=== PATIENT | female | born 1985 | race Hispanic/Latino ===

== ENCOUNTER 2022-05-20 22:32 | Emergency (ER) | payer SELFPAY ==
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
[2022-05-21] MEDS ORDERED: KETOROLAC 30 MG/ML INJ ONE (00:59)
[2022-05-21 01:25] VITALS: TEMP 97.5
[2022-05-21 01:27] VITALS: O2SAT 99
[2022-05-21 01:28] VITALS: BP 112/75
--- NOTE | 2022-05-21 23:03 | RAD REPORT ---
EXAM DESCRIPTION: CT Cervical Spine Without Intravenous Contrast CLINICAL HISTORY: The patient is 36 years old and is Female; NECK PAIN TECHNIQUE: Axial computed tomography images of the cervical spine without intravenous contrast. Sa gittal and coronal reformatted images were created and reviewed. This CT exam was performed using o ne or more of the following dose reduction techniques: automated exposure control, adjustment of th e mA and/or kV according to patient size, and/or use of iterative reconstruction technique. COMPARISON: No relevant prior studies available. FINDINGS: Vertebrae: Reversal of the normal cervical lordosis. No acute fracture. Discs/spinal canal/neural foramina: No acute findings. No spinal canal stenosis. Soft tissues: Unremarkable. IMPRESSION: No acute fracture or subluxation. Electronically signed by: Neeraj Ritter MD 05/21/2022 12:49 AM CDT Due to temporary technical issues with the PACS/Fluency reporting system, reports are being signed by the in house radiologists without review as a courtesy to insure prompt reporting. The interpreting radiologist is fully responsible for the content of the report.
== END 2022-05-21 01:21 | disposition home or self-care (01) ==
LOC: ER 22:32
DX: S16.1XXA Strain of muscle, fascia and tendon at neck level, initial encounter (principal)
CPT/HCPCS: 72125; 96372; 99283

== ENCOUNTER 2023-01-09 13:58 | Emergency (ER) | payer SELFPAY ==
--- OUTSIDE RECORDS SUMMARY | 2023-01-09 14:01 | XMS REPORT | Continuity of Care Document ---
:1985 Author Organization [facility] t Address [address] [place] [address] [place] [id number] Care Team Providers Name Role Phone Unavailable Unavailable Unavailable Problems This patient has no known problems. Allergies, Adverse Reactions, Alerts This patient has no known allergies or adverse reactions. Medications This patient has no known medications. Procedures This patient has no known procedures. Encounters Start End Encounter Admission Attending Care Care Encounter Source Date/Time Date/Time Type Type Clinicians Facility Department ID 2022-06-11 2022-06-11 Outpatient [facility] [id number] Wilfrido 08:44:02 08:44:02 0414 F George Results Test Description Test Time Test Comments Results Result Comments Source PAP TEST, THINPREP, IMAGED 2022-06-15 14:06:06 Test Item Value Reference Range Interpretation Comme nts SOURCE: (test code = Cervical 8001) SLIDES: (test code = 2 8011) LMP: (test code = 8021) 05/21/2022 SPECIMEN ADEQUACY: (test (NOTE) Sa tisfactory for evaluation. code = 53540) Endocervical c ells/transformation zone component not identified. INTERPRETATION: (test NILM/NO EPITH. ---- code = 80354) ABNORMALITY;SEE BELOW ----- ---- NEGATI VE FOR INTRAEPITHELIAL LESION OR MALIGNANCY (NIL M) ------- OTHER COMMENTS: (test (NOTE) The ab sence of endocervical cells code = 8081) is confirmed by a seniorcytotechn ologist.Due to technical or sp ecimen issues, imaging could n ot beperformed. A cytotechnologis t has manually screened this s lide.Interpreted using an altern ate method of processing. Thi s testwas developed and i ts performance characteristics determined by[facility] [place]. It has not been cleared or approved by the FDA. The oliverio ralph is regulated under CLIA asqu alified to perform high-complexity testing. This test is usedfor clinical purposes. It sh ould not be regarded asinve stigational or for research. DEPUTY SHERIFF K9 HANDLER: (test Judit Carrasco CT (ASCP) code = 8101) QC TECHNOLOGIST: (test Christiane Segura [facility](ASCP) code = 8111) [facility] LOCATION: (test code = (NOTE) Speci mens processed and [address]1165) interpreted at [facility], [address] [place] [address], [place] [address], , CLIA: [id number] CPT: (test code = 8140) (NOTE) 8814 2 UNLESS OTHERWISE INDICATED, COMPUTER AIDED AND CYTOTECHNOLOGIS T SCREENING PERFORMED. The Pap test is a screening test with an inherent, but low probabi lity of error. Your patient sh ould be reminded to consult you immediately if she experiences any suspicious signs or symptoms, re gardless of her Pap test result . An alternate report format c ontaining images or consolidated prior Pap history is available as applicable. CT/NG, NAAT, [id number] 17:45:23 Test Item Value Reference Range Interpretation Comments CHLAMYDIA, NAAT, NEGATIVE NEGATIVE A negative result does THINPREP (test code not excl ude low level = 54409) infection, specimensamplin g error, or collection erro r. Testing is performed wi the [employer]ol[employer] Lalo 680 systems usingre al-time Polymerase Bart n Reaction (PCR) method. GONORRHEA, NAAT, NEGATIVE NEGATIVE A negative result does THINPREP (test code not excl ude low level = 17105) infection, specimensamplin g error, or collection erro r. Testing is performed the [employer] 680 systems usingre al-time Polymerase Bart n Reaction (PCR) method. HPV HIGH RISK WITH GENOTYPE, [id number] 11:13:34 Test Item Value Reference Range Interpretation Comments HPV HIGH RISK TEST NOT PERFORMED NEGATIVE QUANTIT Y OF SPECIMEN INTERP (test INSUFFICIENT FO R code = 33534) TESTING. CHARG ES DELETED. [facility] has important patho logy staff changes effective 04/28. New patholo gy staff will prov sia uninterrupted, excellent patie nt care and clinic al consultation. S ee URL: [email or web address] UNLE SS OTHERWISE INDIC ATED, ALL TESTING PER FORMED AT [facility], [facility] [address] [place] [address] [employer] DIRECTOR: Gerson LEE MARY NUMBER [id number] CAP ACCREDITATION N O. [id number] HIV 1/2 4TH GEN, RFLX [id number] 04:23:47 Test Item Value Reference Range Interpretation Comments HIV 1/2 4TH GEN, RFLX CONF (test NON-REACTIVE NON-REACTIVE code = 3514) HEPATITIS PANEL, [id number] 04:23:47 Test Item Value Reference Range Interpretation Comments HEPATITIS A IgM (test NON-REACTIVE NON-REACTIVE code = 48158) HEPATITIS B CORE IgM NON-REACTIVE NON-REACTIVE (test code = 4644) HEPATITIS B SURF AG NON-REACTIVE NON-REACTIVE (test code = 2739) HEPATITIS C ANTIBODY NON-REACTIVE NON-REACTIVE (test code = 4675) INTERPRETATION (NOTE) Hepatitis A HEPATITIS A: (test code sero logy shows no = 2552) evidence of acu te hepatitis A. INTERPRETATION (NOTE) Hepatitis B HEPATITIS B: (test code sero logy shows no = 35495) evidence of acu te hepatitis B and no indication of exposure to hepatitis B vir us in the previous [place] eight months. INTERPRETATION (NOTE) Hepatitis C HEPATITIS C: (test code sero logy shows no = 61597) evidence of exposure to hepatitisC viru s at this time. I t can take up to 12 months after exposure tothe hepatitis C vir us for antibodies to become detectab le in the blood in certain patient s. VITAMIN D, 25 [id number] 04:03:57 Test Item Value Reference Range Interpretation Comments VITAMIN D, 25 29 NG/ML SEE BELOW L EFFECTIVE 03/08/2022, [place] (test code PLEASE NOTE NE W METHODOLOGY = 4958) IS ELECTROCH EMILUMINESCENCE BINDING ASSAY. NOTE: 25-HYDROXYVITAM IN D ASSAY INCLUDES 25-HYD ROXYVITAMIN D2 AND D3. I NTERPRETIVE RANGES PED IATRIC (<17 YEARS) . . . . . . . . . . . NG/ML 20-100ADU LT: INSUFFICIENT . . . . . . . . . . . . . . NG/ML <20 SUBOP TIMAL . . . . . . . . . . . . . . . NG/ML 20-29 OPTIMAL . . . . . . . . . . . . . . . . . NG/ML 30-100 [id number] 03:54:57 Test Item Value Reference Range Interpretation Comments PROLACTIN (test 22.8 NG/ML 5.0-37.0 NOTE: Metho dology is Adolfo code = 2800) Lalo Electrochemilum inescence Immunoassay (EC MARY). Values obtained with d ifferent assays/manufact urers cannot be used interch angeably. Results should not be used as sole basis to e stablish the presence or abs ence of malignancy. [facility] has important patho logy staff changes effecti ve 04/28/2022. New patholo gy staff will provide uninter rupted, excellent patie nt care and clinical consul tation. See URL: [email or web address] UNLESS OTHER ACE INDICATED, ALL TESTING PERFORMED AT [facility] Event [employer] [address] [place] [address] LABORATORY DIRE CTOR: BENNY WATSON M.D. [place] NUMBER [id number] CAP ACCREDITATION N O. [id number] TSH, THIRD [id number] 03:54:57 Test Item Value Reference Range Interpretation Comments TSH, THIRD GENERATION (test code 1.650 UIU/ML 0.400-4.100 = 2821) VITAMIN [id number] 03:54:57 Test Item Value Reference Range Interpretation Comments VITAMIN B-12 (test code = 2840) 358 PG/ML 200-950 FSH + LH [id number] 03:54:57 Test Item Value Reference Range Interpretation Comments FOLLICLE STIM HORMONE 2.5 IU/L SEE BELOW EXPECTED VALUES (test code = 2700) FOR FSH F OR FEMALES >17 YEARS F OLLICULAR 3.5-12.5 IU/L M ID-CYCLE PEAK 4.7-21.5 I U/L LUTEAL PHASE 1. 7-7.7 IU/L POSTMENOPA USAL 25.8-134.8 IU/L LUTEINIZING HORMONE 2.6 IU/L SEE BELOW EXPECTED VALUES (test code = 2776) FOR LH FO R FEMALES >17 YEARS MALES FEMALES >=18 YE ARS 1.8-8.6 IU/L FO LLICULAR 2.4-12.6 IU/L M ID-CYCLE PEAK 14.0-95.6 IU/L LUTEAL PHASE 1. 0-11.4 IU/L POSTMENOPA USAL 7.7-58.5 IU/L [id number] 03:44:24 Test Item Value Reference Range Interpretation Comments RPR RESULT (test code = NON-REACTIVE NON-REACTIVE 3501) RPR TITER (test code = 3500) NOT INDIC. TITER NOT INDIC.
[2023-01-09] MEDS ORDERED: DIPHENHYDRAMINE 50 MG/ML VIAL ONE (14:44)
[2023-01-09] MEDS ORDERED: dexAMETHasone 10 MG/ML VIAL ONE (14:45)
[2023-01-09] MEDS ORDERED: KETOROLAC 30 MG/ML INJ ONE (14:45)
[2023-01-09] MEDS ORDERED: METOCLOPRAMIDE 10 MG/2mL INJ ONE (14:45)
--- NOTE | 2023-01-09 16:02 | ER ---
Nurse's Notes [facility] Name: Kathryn Cabrera Age: 37 yrs Sex: Female : 1985 Arrival Date: 01/09/2023 Time: 13:58 Bed 19 Private MD: Diagnosis: Headache Presentation: 01/09 14:07 Chief complaint: Patient states: Congestion and frontal headache that has been ongoing ss x 1 month. Pt went to see a at [facility] and was given an antibiotic which has not helped. Coronavirus screen: Client denies travel out of the [place] in the last 14 days. Ebola Screen: Patient denies exposure to infectious person. Patient denies travel to an Ebola-affected area in the 21 days before illness onset. Initial Sepsis Screen: Does the patient meet any 2 criteria? No. Patient's initial sepsis screen is negative. Does the patient have a suspected source of infection? No. Patient's initial sepsis screen is negative. Risk Assessment: Do you want to hurt yourself or someone else? Patient reports no desire to harm self or others. Onset of symptoms was November 2022. 14:07 Method Of Arrival: Ambulatory ss 14:07 Acuity: MICHAEL 3 ss Triage Assessment: 16:06 Headache History: Denies prior headaches. tm6 Historical: - Allergies: 14:11 No Known Allergies; ss - Home Meds: 14:11 None [Active]; ss - PMHx: 14:09 None; ss - Immunization history:: Client reports receiving the 2nd dose of the Covid vaccine. - Social history:: Smoking status: Patient denies any tobacco usage or history of. Screenin:53 [facility] ED Fall Risk Assessment (Adult) History of falling in the last 3 months, tm6 including since admission No falls in past 3 months (0 pts). Abuse screen: Denies threats or abuse. Denies injuries from another. Nutritional screening: No deficits noted. Tuberculosis screening: No symptoms or risk factors identified. Assessment: 14:53 General: Appears uncomfortable, Behavior is calm, cooperative. Pain: Complains of pain tm6 in face Pain currently is 8 out of 10 on a pain scale. Quality of pain is described as aching. Neuro: Level of Consciousness is awake, alert, obeys commands, Oriented to person, place, time, situation, Reports headache in entire. Cardiovascular: Capillary refill < 3 seconds Patient's skin is warm and dry. Respiratory: Airway is patent Respiratory effort is even, unlabored, Respiratory pattern is regular, symmetrical. GI: Abdomen is round non-distended. : No signs and/or symptoms were reported regarding the genitourinary system. EENT: No signs and/or symptoms were reported regarding the EENT system. Derm: No signs and/or symptoms reported regarding the dermatologic system. Musculoskeletal: No signs and/or symptoms reported regarding the musculoskeletal system. 15:46 Reassessment: Patient appears in no apparent distress at this time. Patient is alert, tm6 oriented x 3, equal unlabored respirations, skin warm/dry/pink. Patient states feeling better. Patient states symptoms have improved. Vital Signs: 14:07 BP 132 / 91; Pulse 118; Resp 16; Temp 98.3(TE); Pulse Ox 100% on R/A; Weight 77.11 kg; ss Height 4 ft. 9 in. ; 14:53 BP 126 / 82; Pulse 98; Resp 17; Pulse Ox 98% ; tm6 14:53 Pain 8/10; tm6 15:45 BP 122 / 81; Pulse 87; Pulse Ox 98% on R/A; tm6 15:46 Pain 4/10; tm6 14:07 Body Mass Index 36.79 (77.11 kg, 144.78 cm) ss 14:53 Pain Scale: Adult tm6 15:46 Pain Scale: Adult tm6 ED Course: 14:01 Patient arrived in ED. im 14:05 Aidan Cunningham MD is Attending Physician. ec2 14:09 Triage completed. ss 14:09 Arm band placed on right wrist. ss 14:27 Dong Devine, MIHAI is Primary Nurse. tm6 14:53 Patient has correct armband on for positive identification. Placed in gown. Bed in low tm6 position. Call light in reach. Side rails up X2. Provided Education on: medications given. Client placed on continuous cardiac and pulse oximetry monitoring. NIBP monitoring applied. Door closed. Noise minimized. Lights dimmed. Warm blanket given. 14:53 No provider procedures requiring assistance completed. tm6 14:55 Inserted saline lock: 20 gauge in right antecubital area, using aseptic technique. ld1 16:06 IV discontinued, intact, bleeding controlled, No redness/swelling at site. tm6 Administered Medications: 14:52 Drug: NS 0.9% IV 1000 ml IV at 1 bolus Per protocol; 1000 mL bolus Route: IV; Rate: 1 tm6 bolus; Site: right antecubital; 14:52 Drug: metoCLOPramide IVP 10 mg IVP once; over 1 to 2 minutes Route: IVP; Site: right tm6 antecubital; 14:52 Drug: diphenhydrAMINE IVP 25 mg IVP once Route: IVP; Site: right antecubital; tm6 14:52 Drug: Ketorolac IVP 10 mg 10 mg IVP once Route: IVP; Site: right antecubital; tm6 14:52 Drug: Decadron - Dexamethasone IVP 10 mg IVP once Route: IVP; Site: right antecubital; tm6 Medication: 14:53 VIS not applicable for this client. tm6 Outcome: 16:01 Discharge ordered by . ec2 16:06 Discharged to home ambulatory, tm6 16:06 Condition: stable 16:06 Discharge instructions given to patient, Instructed on discharge instructions, follow up and referral plans. Demonstrated understanding of instructions, follow-up care, 16:07 Patient left the ED. tm6 Signatures: Kaleigh Ramos RN RN Regina Pascual RN RN ld1 Nicolasa Doll Edwin, MD MD ec2 Dong Devine RN RN tm6
--- NOTE | 2023-01-09 16:02 | EDPHYS ---
Physician Documentation [facility] Name: Kathryn Cabrera Age: 37 yrs Sex: Female : 1985 Arrival Date: 01/09/2023 Time: 13:58 Bed 19 Private MD: ED Physician Aidan Cunningham HPI: 01/09 14:21 This 37 yrs old Female presents to ER via Ambulatory with complaints of ec2 Headache, Worst Ever. 14:21 Patient arrives today for evaluation of a persistent headache. States that she been ec2 having symptoms for approximately 3 to 4 months, has been evaluated in the past and has had previous CT imaging that was nondiagnostic. Patient reports she has persistent pain, can take ibuprofen with some improvement in her symptoms. Patient reports some associated nausea. Denies any vomiting. Denies any head trauma.. Historical: - Allergies: 14:11 No Known Allergies; ss - Home Meds: 14:11 None [Active]; ss - PMHx: 14:09 None; ss - Immunization history:: Client reports receiving the 2nd dose of the Covid vaccine. - Social history:: Smoking status: Patient denies any tobacco usage or history of. ROS: 14:21 Constitutional: as per hpi ec2 Exam: 14:21 Constitutional: GEN: NAD Head: atraumatic Eyes: EOMI Ears: External ears are ec2 normal. CV: tachycardia, LUNGS: no respiratory distress ABD: non-distended SKIN: no evidence of rashes MSK: no evidence of trauma NEURO: moves all extremities equally, cranial nerves II through XII intact, strength intact all 4 extremities, normal gait, intact sensation throughout. Vital Signs: 14:07 BP 132 / 91; Pulse 118; Resp 16; Temp 98.3(TE); Pulse Ox 100% on R/A; Weight 77.11 kg; ss Height 4 ft. 9 in. ; 14:53 BP 126 / 82; Pulse 98; Resp 17; Pulse Ox 98% ; tm6 14:53 Pain 8/10; tm6 15:45 BP 122 / 81; Pulse 87; Pulse Ox 98% on R/A; tm6 15:46 Pain 4/10; tm6 14:07 Body Mass Index 36.79 (77.11 kg, 144.78 cm) ss 14:53 Pain Scale: Adult tm6 15:46 Pain Scale: Adult tm6 MDM: 14:05 Patient medically screened. ec2 14:21 ED course: Patient arrives today for evaluation of a persistent headache ongoing for ec2 greater than 4 months. Examination remarkable for nontoxic individual is otherwise in no acute distress he does have an intact neurologic exam and slight tachycardia noted. We will treat the patient symptoms and reassess the patient. Currently considering headache syndrome, low suspicion for intracranial brain bleed, low suspicion for mass. Accordingly will defer CT scan of the head.. 16:01 Data reviewed: vital signs. ED course: On reassessment patient with marked improvement ec2 in her symptoms. Will discharge home, suspect chronic headache syndrome versus possible viral process. Suspicion for intracranial process such as masses or bleeds, low suspicion for process such as meningitis or encephalitis. Return precautions given.. Administered Medications: 14:52 Drug: NS 0.9% IV 1000 ml IV at 1 bolus Per protocol; 1000 mL bolus Route: IV; Rate: 1 tm6 bolus; Site: right antecubital; 14:52 Drug: metoCLOPramide IVP 10 mg IVP once; over 1 to 2 minutes Route: IVP; Site: right tm6 antecubital; 14:52 Drug: diphenhydrAMINE IVP 25 mg IVP once Route: IVP; Site: right antecubital; tm6 14:52 Drug: Ketorolac IVP 10 mg 10 mg IVP once Route: IVP; Site: right antecubital; tm6 14:52 Drug: Decadron - Dexamethasone IVP 10 mg IVP once Route: IVP; Site: right antecubital; tm6 Disposition Summary: 01/09/23 16:01 Discharge Ordered Notes: Location: Home ec2 Condition: Stable ec2 Diagnosis - Headache ec2 Discharge Instructions: - Discharge Summary Sheet ec2 - General Headache Without Cause ec2 Forms: - Medication Reconciliation Form ec2 - Thank You Letter ec2 - Antibiotic Education ec2 - Prescription Opioid Use ec2 - Patient Portal Instructions ec2 - Leadership Thank You Letter ec2 Prescriptions: - Compazine 10 mg Oral Tablet - take 1 tablet ORAL route every 8 hours As needed; 20 tablet; Refills: 0, ec2 Product Selection Permitted Signatures: Kaleigh Ramos RN RN Aidan Cunningham MD MD ec2 Dong Devine RN RN tm6 Corrections: (The following items were deleted from the chart) 14:23 14:21 Constitutional: GEN: NAD Head: atraumatic Eyes: EOMI Ears: External ears are ec2 normal. CV: regular rate LUNGS: no respiratory distress ABD: non-distended SKIN: no evidence of rashes MSK: no evidence of trauma NEURO: moves all extremities equally, cranial nerves II through XII intact, strength intact all 4 extremities, normal gait, intact sensation throughout. ec2
[2023-01-09 16:10] VITALS: TEMP 98.3
[2023-01-09 16:12] VITALS: O2SAT 98
[2023-01-09 16:14] VITALS: BP 122/81
== END 2023-01-09 16:07 | disposition home or self-care (01) ==
LOC: ER 13:58
DX: R51.9 Headache, unspecified (principal)
CPT/HCPCS: 96374; 96375; 99284; J1100; J1200; J2765

== ENCOUNTER 2023-02-06 20:54 | Emergency (ER) | payer SELFPAY ==
--- OUTSIDE RECORDS SUMMARY | 2023-02-06 20:57 | XMS REPORT | Continuity of Care Document ---
Author Name Unknown Address [address] [facility] [address] [place] [address] [facility] thconnect Address [address] [facility] [place] [address] Care Team Providers Care Seed Pelleter Name Role Phone Unavailable Unavailable Unavailable Encounters Start Date/Time End Date/Time Encounter Type Admission Type Attending Clinicians Care Facility Care Department Encounter ID Source 2022-06-11 08:44:02 2022-06-11 08:44:02 Outpatient [facility] [id number] Wilfrido Vazquez Results Test Description Test Time Test Comments Results Result Co mments Source CT/NG, NAAT, [id number] 17:45:23* Test Item Value Reference Range Interpretation Comme nts CHLAMYDIA, NAAT, THINPREP (test code = 24367) NEGATIVE NEGATIVE A negative resul t does not exclude low level infection, specimensampling error, or collection error. Testing is performed with the [employer] Lalo 6800/8800 systems usingreal-time Polymerase Chain Reaction (PCR) method. GONORRHEA, NAAT, THINPREP (test code = 19961) NEGATIVE NEGATIVE A negative resul t does not exclude low level infection, specimensampling error, or collection error. Testing is performed with the [employer] 6800/8800 systems usingreal-time Polymerase Chain Reaction (PCR) method. HPV HIGH RISK WITH GENOTYPE, [id number] 11:13:34* Test Item Value Reference Range Interpretation Comme nts HPV HIGH RISK INTERP (test code = 53771) TEST NOT PERFORMED NEGATIVE QUANTITY OF S PECIMEN INSUFFICIENT FOR TESTING. CHARGES DELETED. [facility] has important pathology staff changes effective 04/28/2022. New pathology staff will provide uninterrupted, excellent patient care and clinical consultation. See URL: [email or web address]. UNLESS OTHERWISE INDICATED, ALL TESTING PERFORMED AT [facility] [address] [place] [id number] [employer] ENGINEER: BENNY MANZANO M.D. [place] NUMBER [id number] [facility] [place]. [id number] HIV 1/2 4TH GEN, RFLX [id number] 04:23:47* Test Item Value Reference Range Interpretation Comme nts HIV 1/2 4TH GEN, RFLX CONF ( test code = 3514) NON-REACTIVE NON-REACTIVE HEPATITIS PANEL, [id number] 04:23:47* Test Item Value Reference Range Interpretation Comme nts HEPATITIS A IgM (test code = 40265) NON-REACTIVE NON-REACTIVE HEPATITIS B CORE IgM (test code = 4644) NON-REACTIVE NON-REACTIVE HEPATITIS B SURF AG (test code = 2739) NON-REACTIVE NON-REACTIVE HEPATITIS C ANTIBODY (test code = 4675) NON-REACTIVE NON-REACTIVE INTERPRETATION HEPATITIS A: (test code = 2552) (NOTE) Hepatitis A serology shows no evidence of acute hepatitis A. INTERPRETATION HEPATITIS B: (test code = 45586) (NOTE) Hepatitis B serology shows no evidence of acute hepatitis B andno indication of exposure to hepatitis B virus in the previous [place] eight months. INTERPRETATION HEPATITIS C: (test code = 71250) (NOTE) Hepatitis C serology shows no evidence of exposure to hepatitisC virus at this time. It can take up to 12 months after exposure tothe hepatitis C virus for antibodies to become detectable in the blood in certain patients. VITAMIN D, 25 [id number] 04:03:57* Test Item Value Reference Range Interpretation Comme [facility] VITAMIN D, 25 OH (test code = 4958) 29 NG/ML SEE BELOW L EFFECTIVE 10/2022, PLEASE NOTE NEW METHODOLOGY IS ELECTROCHEMILUMINESCENCE BINDING ASSAY. NOTE: 25-HYDROXYVITAMIN D ASSAY INCLUDES 25-HYDROXYVITAMIN D2 AND D3. INTERPRETIVE RANGES PEDIATRIC (<17 YEARS) . . . . . . . . . . . NG/ML 20-100ADULT: INSUFFICIENT . . . . . . . . . . . . . . NG/ML <20 SUBOPTIMAL . . . . . . . . . . . . . . . NG/ML 20-29 OPTIMAL . . . . . . . . . . . . . . . . . NG/ML 30-100 [id number] 03:54:57* Test Item Value Reference Range Interpretation Comme [facility] PROLACTIN (test code = 2800) 22.8 NG/ML 5.0-37.0 NOTE: Methodolog y is [employer]alo Electrochemiluminescence Immunoassay (ECLIA). Values obtained with different assays/manufacturers cannot be used interchangeably. Results should not be used as sole basis to establish the presence or absence of malignancy. [facility] has important pathology staff changes effective 04/28/2022. New pathology staff will provide uninterrupted, excellent patient care and clinical consultation. See URL: [email or web address]. UNLESS OTHERWISE INDICATED, ALL TESTING PERFORMED AT [facility] [address] [place] [address] [employer] ENGINEER: BENNY MANZANO M.D. CLIA NUMBER [id number] [facility]. [id number] TSH, THIRD [id number] 03:54:57* Test Item Value Reference Range Interpretation Comme [facility] TSH, THIRD GENERATION (test code = 2821) 1.650 UIU/ML 0.400-4.100 VITAMIN [id number] 03:54:57* Test Item Value Reference Range Interpretation Comme [facility] VITAMIN B-12 (test code = 2840) 358 PG/ML 200-950 FSH + LH [id number] 03:54:57* Test Item Value Reference Range Interpretation Comme [facility] FOLLICLE STIM HORMONE (test code = 2700) 2.5 IU/L SEE BELOW EXPEC EDILIA VALUES FOR FSH FOR FEMALES >17 YEARS FOLLICULAR 3.5-12.5 IU/L MID-CYCLE PEAK 4.7-21.5 IU/L LUTEAL PHASE 1.7-7.7 IU/L POSTMENOPAUSAL 25.8-134.8 IU/L LUTEINIZING HORMONE (test code = 2776) 2.6 IU/L SEE BELOW EXPEC EDILIA VALUES FOR LH FOR FEMALES >17 YEARS MALES FEMALES >=18 YEARS 1.8-8.6 IU/L FOLLICULAR 2.4-12.6 IU/L MID-CYCLE PEAK 14.0-95.6 IU/L LUTEAL PHASE 1.0-11.4 IU/L POSTMENOPAUSAL 7.7-58.5 IU/L [id number] 03:44:24* Test Item Value Reference Range Interpretation Comme nts RPR RESULT (test code = 3501) NON-REACTIVE NON-REACTIVE RPR TITER (test code = 3500) NOT INDIC. TITER NOT INDIC.
[2023-02-06 21:59] LABS: Absolute Lymphocytes (CBC) 3.3 K/uL (0.7-4.9); Hematocrit 40.8 % (36.0-45.0); MCV 89.4 fL (80-100); MPV 9.4 fL (7.6-11.3); Platelets 320 thou/uL (152-406); RBC Red Blood Cell Count 4.57 M/uL (3.86-4.86)
--- NOTE | 2023-02-06 22:16 | RAD REPORT ---
EXAM DESCRIPTION: RAD - Chest Single View - 02/06/2023 10:11 pm CLINICAL HISTORY: CHEST PAIN Chest pain. COMPARISON: <Comparisons> FINDINGS: Portable technique limits examination quality. The lungs are grossly clear. The heart is normal in size. No displaced fractures. IMPRESSION: No acute intrathoracic process suspected.
[2023-02-06 22:26] LABS: ALT/SGPT 37 U/L (13-56); AST/SGOT 13 U/L (15-37); Albumin 3.9 g/dL (3.4-5.0); Alkaline Phosphatase 90 U/L (45-117); BUN Blood Urea Nitrogen 18 mg/dL (7-18); Bicarbonate 26 mEq/L (21-32); Bilirubin Total 0.2 mg/dL (0.2-1.0); Glomerular Filtration Rate 114 ml/min (=/>90); Glucose Level 103 mg/dL (74-106); Magnesium 2.4 mg/dL (1.6-2.4); Potassium 3.5 mEq/L (3.5-5.1); Protein, Total 7.9 g/dL (6.4-8.2); Sodium Level 138 mEq/L (136-145); Troponin High Sensitivity 3.3 pg/mL (<58.9)
[2023-02-06 22:27] LABS: Bilirubin Direct < 0.1 mg/dL (0-0.2); Bilirubin Indirect, Calculated ND mg/dL (0.2-0.8)
--- NOTE | 2023-02-06 22:31 | ER ---
Nurse's Notes [facility] Name: Kathryn Cabrera Age: 37 yrs Sex: Female : 1985 Arrival Date: 02/06/2023 Time: 20:54 Bed 18 Private MD: Diagnosis: Chest pain, unspecified Presentation: 02/06 21:03 Chief complaint: Patient states: Pt states she has been having a warm sensation to her ri1 chest and arms on/off since Tuesday after taking 2 excedrins. States she has been belching on/off ever since. Denies abdominal pain. Unsure if it could be anxiety. Coronavirus screen: Vaccine status: Patient reports receiving the 2nd dose of the covid vaccine. Ebola Screen: Patient denies travel to an Ebola-affected area in the 21 days before illness onset. Initial Sepsis Screen: Does the patient meet any 2 criteria? HR > 90 bpm. No. Patient's initial sepsis screen is negative. Does the patient have a suspected source of infection? No. Patient's initial sepsis screen is negative. Risk Assessment: Do you want to hurt yourself or someone else? Patient reports no desire to harm self or others. Onset of symptoms was February 04, 2023. 21:03 Method Of Arrival: Ambulatory [facility] 21:03 Acuity: MICHAEL 3 [facility] BOARD TURNER: 21:31 LMP N/A - , Not mb9 Historical: - Allergies: 21:14 No Known Allergies; nj1 - PMHx: 21:14 None; nj1 - PSHx: 21:14 None; nj1 - Immunization history:: Client reports receiving the 2nd dose of the Covid vaccine. - Social history:: Smoking status: Patient denies any tobacco usage or history of. - Family history:: not pertinent. Screenin:15 [facility] ED Fall Risk Assessment (Adult) History of falling in the last 3 months, mb9 including since admission No falls in past 3 months (0 pts) Confusion or Disorientation No (0 pts) Intoxicated or Sedated No (0 pts) Impaired Gait No (0 pts) Mobility Assist Device Used No (0 pt) Altered Elimination No (0 pt) Score/Fall Risk Level 0 - 2 = Low Risk Oriented to surroundings, Maintained a safe environment, Educated pt \T\ family on fall prevention, incl call for assistance when getting out of bed. Abuse screen: Denies threats or abuse. Nutritional screening: No deficits noted. Tuberculosis screening: No symptoms or risk factors identified. Assessment: 21:24 General: Appears in no apparent distress. Behavior is calm, cooperative. Pain: mb9 Complains of pain in chest Pain does not radiate. Pain currently is 8 out of 10 on a pain scale. Quality of pain is described as pressure, throbbing, Pain began suddenly, Is intermittent. Neuro: [place]aton Agitation-Sedation Scale (RASS): 0 - Alert and Calm Level of Consciousness is awake, alert, obeys commands, Oriented to person, place, time, situation, Appropriate for age. Cardiovascular: Reports chest pain, shortness of breath, Patient's skin is warm and dry. Respiratory: Reports shortness of breath Airway is patent Respiratory effort is even, unlabored, Respiratory pattern is regular, symmetrical. GI: Abdomen is round non-distended, Bowel sounds present X 4 quads. Abd is soft and non tender X 4 quads. Reports nausea. : No signs and/or symptoms were reported regarding the genitourinary system. EENT: No signs and/or symptoms were reported regarding the EENT system. Derm: Skin is pink, warm \T\ dry. Musculoskeletal: Range of motion: intact in all extremities. 22:24 Reassessment: Patient appears in no apparent distress at this time. Patient and/or tm6 family updated on plan of care and expected duration. Pain level reassessed. Patient is alert, oriented x 3, equal unlabored respirations, skin warm/dry/pink. 22:33 Reassessment: Patient and/or family updated on plan of care and expected duration. Pain ha1 level reassessed. Patient is alert, oriented x 3, equal unlabored respirations, skin warm/dry/pink. Patient states symptoms have improved. Vital Signs: 21:03 BP 160 / 103; Pulse 92; Resp 18; Temp 97.6(O); Pulse Ox 100% on R/A; Weight 72.57 kg; nj1 Height 4 ft. 9 in. ; 21:30 BP 132 / 81; Pulse 83; Resp 18; Pulse Ox 99% on R/A; mb9 21:53 BP 115 / 71; Pulse 80; Resp 17 S; Pulse Ox 100% on R/A; ha1 22:25 BP 114 / 78; Pulse 79; Resp 14; Pulse Ox 100% ; Pain 0/10; tm6 21:03 Body Mass Index 34.62 (72.57 kg, 144.78 cm) nj1 22:25 Pain Scale: Adult tm6 ED Course: 20:57 Patient arrived in ED. jj6 20:58 Inder Sevilla MD is Attending Physician. rt 21:14 Triage completed. nj1 21:15 Arm band placed on. mb9 21:15 Arm band placed on right wrist. nj1 21:15 Placed in gown. Bed in low position. Call light in reach. Side rails up X 1. Client mb9 placed on continuous cardiac and pulse oximetry monitoring. NIBP monitoring applied. media monitor on. 21:25 EKG done, by ED staff, reviewed by Inder Sevilla MD. Inserted saline lock: 20 gauge mb9 in right antecubital area, using aseptic technique. 21:29 Ciara Fritz, RN is Primary Nurse. mb9 21:29 Basic Metabolic Panel Sent. mb9 21:29 TSH Sent. mb9 21:29 CBC with Diff Sent. mb9 21:29 LFT's Sent. mb9 21:29 Magnesium Sent. mb9 21:29 Troponin HS Sent. mb9 21:31 No provider procedures requiring assistance completed. Patient maintains SpO2 mb9 saturation greater than 95% on room air. 21:42 Report given to Camryn. mb9 22:13 XRAY Chest (1 view) In Process Unspecified. EDMS 22:41 Provided Education on: follow up with private physician in 2-3 days. tm6 22:41 IV discontinued, intact, bleeding controlled, No redness/swelling at site. Pressure tm6 dressing applied. Administered Medications: No medications were administered Medication: 21:15 VIS not applicable for this client. mb9 Outcome: 22:31 Discharge ordered by MD. rt 22:41 Discharged to home ambulatory, with family, tm6 22:41 Condition: stable 22:41 Discharge instructions given to patient, family, Instructed on discharge instructions, follow up and referral plans. Demonstrated understanding of instructions, follow-up care, 22:41 Patient left the ED. tm6 Signatures: Dispatcher [employer] EDMS [place] Nancy jj6 Malia Howell RN RN ha1 Ciara Fritz, RN RN mb9 Inder Sevilla MD MD rt Teri Mohamud, RN RN nj1 Dong Devine, RN RN tm6
--- NOTE | 2023-02-06 22:31 | EDPHYS ---
Physician Documentation [facility] [place] Name: Kathryn Cabrera Age: 37 yrs Sex: Female : 1985 Arrival Date: 02/06/2023 Time: 20:54 Bed 18 Private MD: ED Physician Inder Sevilla HPI: 02/06 21:30 This 37 yrs old Female presents to ER via Ambulatory with complaints of Chest rt Tightness, Anxiety. 21:30 Patient presents to the ED with intermittent chest discomfort which she describes as a rt warm sensation which she states radiates to her arms. She reports having episodes of belching. Patient attributes this to drinking caffeine. She denies other acute complaints at this time. States that her symptoms are mostly resolved. Symptoms are mild in severity, no other aggravating or alleviating factors.. 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 - Social history:: Smoking status: Patient denies any tobacco usage or history of. - Family history:: not pertinent. ROS: 21:30 Constitutional: Negative for fever, chills, and weight loss, Respiratory: Negative for rt shortness of breath, cough, wheezing, and pleuritic chest pain, Abdomen/GI: Negative for abdominal pain, nausea, vomiting, diarrhea, and constipation, MS/Extremity: Negative for injury and deformity, Skin: Negative for injury, rash, and discoloration, Neuro: Negative for headache, weakness, numbness, tingling, and seizure, Psych: Negative for depression, anxiety, suicide ideation, homicidal ideation, and hallucinations, 21:30 Cardiovascular: Positive for chest pain, Negative for edema, Exam: 21:30 Constitutional: This is a well developed, well nourished patient who is awake, alert, rt and in no acute distress. Head/Face: Normocephalic, atraumatic. Chest/axilla: Normal chest wall appearance and motion. Nontender with no deformity. No lesions are appreciated. Cardiovascular: Regular rate and rhythm with a normal S1 and S2. No gallops, murmurs, or rubs. Normal PMI, no JVD. No pulse deficits. Respiratory: Lungs have equal breath sounds bilaterally, clear to auscultation and percussion. No rales, rhonchi or wheezes noted. No increased work of breathing, no retractions or nasal flaring. Abdomen/GI: Soft, non-tender, with normal bowel sounds. No distension or tympany. No guarding or rebound. No evidence of tenderness throughout. Skin: Warm, dry with normal turgor. Normal color with no rashes, no lesions, and no evidence of cellulitis. MS/ Extremity: Pulses equal, no cyanosis. Neurovascular intact. Full, normal range of motion. Neuro: Awake and alert, GCS 15, oriented to person, place, time, and situation. Cranial nerves II-XII grossly intact. Motor strength 5/5 in all extremities. Sensory grossly intact. Cerebellar exam normal. Normal gait. Psych: Awake, alert, with orientation to person, place and time. Behavior, mood, and affect are within normal limits. 21:30 ECG was reviewed by the Attending Physician. Vital Signs: 21:03 BP 160 / 103; Pulse 92; Resp 18; Temp 97.6(O); Pulse Ox 100% on R/A; Weight 72.57 kg; nj1 Height 4 ft. 9 in. ; 21:30 BP 132 / 81; Pulse 83; Resp 18; Pulse Ox 99% on R/A; mb9 21:53 BP 115 / 71; Pulse 80; Resp 17 S; Pulse Ox 100% on R/A; ha1 22:25 BP 114 / 78; Pulse 79; Resp 14; Pulse Ox 100% ; Pain 0/10; tm6 21:03 Body Mass Index 34.62 (72.57 kg, 144.78 cm) nj1 22:25 Pain Scale: Adult tm6 MDM: 21:22 Patient medically screened. rt 22:31 Differential diagnosis: acute myocardial infarction, acute pericarditis, anxiety, chest rt wall pain, pneumonia, pneumothorax, pulmonary embolus. Data reviewed: vital signs, nurses notes, lab test result(s), EKG, radiologic studies. Consideration of Admission/Observation Escalation of care including admission/observation considered. Low heart score, symptoms are very atypical of acute coronary syndrome, does not require admission for chest pain rule out.. Independent interpretation of the following test(s) in the Emergency Department X-Ray: My interpretation is No pneumonia seen on interpretation of x-ray images. Test considered but Not performed: CT: PE RC negative, does not require CT angiogram to rule out pulmonary embolism. Scoring Tools HEART Score: History: Slightly Suspicious (0) ECG: Normal (0) Age: < or = 45 years (0) Risk Factors: No Risk factors known (0) Troponin: < or = 1 x Normal limit (0) Total Score = 0. Counseling: I had a detailed discussion with the patient and/or guardian regarding the historical points, exam findings, and any diagnostic results supporting the discharge/admit diagnosis, lab results, radiology results, the need for outpatient follow up, to return to the emergency department if symptoms worsen or persist or if there are any questions or concerns that arise at home. 02/06 21: Order name: Basic Metabolic Panel; Complete Time: : rt 02/06 21:28 Order name: CBC with Diff; Complete Time: : rt 02/06 21:28 Order name: LFT's; Complete Time: : rt 02/06 21:28 Order name: Magnesium; Complete Time: : rt 02/06 21:28 Order name: Troponin HS; Complete Time: : rt 02/06 21:28 Order name: TSH; Complete Time: : rt 02/06 21:28 Order name: XRAY Chest (1 view); Complete Time: 22: rt 02/06 21:28 Order name: Cardiac monitoring; Complete Time: : rt 02/06 21:28 Order name: EKG - Nurse/Tech; Complete Time: rt 02/06 21:28 Order name: IV Saline Lock; Complete Time: rt 02/06 21:28 Order name: Labs collected and sent; Complete Time: : rt 02/06 21: Order name: O2 Per Protocol; Complete Time: : rt 02/06 21: Order name: O2 Sat Monitoring; Complete Time: : rt EC:30 Rate is 90 beats/min. Rhythm is regular, Normal Sinus Rhythm with No ectopy. QRS [place] rt is Normal. MA interval is normal. QRS interval is normal. QT interval is normal. No Q waves. T waves are Normal. No ST changes noted. Administered Medications: No medications were administered Disposition Summary: 02/06/23 22:31 Discharge Ordered Notes: Location: Home rt Problem: new rt Symptoms: have improved rt Condition: Stable rt Diagnosis - Chest pain, unspecified rt Followup: rt - With: Private Physician - When: 2 - 3 days - Reason: Discharge Instructions: - Discharge Summary Sheet rt - Nonspecific Chest Pain, Adult rt Forms: - Medication Reconciliation Form rt - Thank You Letter rt - Antibiotic Education rt - Prescription Opioid Use rt - Patient Portal Instructions rt - Leadership Thank You Letter rt Signatures: Dispatcher [employer] Inder Mcdermott MD MD rt Teri Mohamud, RN RN nj1
[2023-02-06 23:06] VITALS: TEMP 97.6; O2SAT 100
[2023-02-06 23:12] VITALS: BP 114/78
--- NOTE | 2023-02-08 13:47 | EKG ---
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
== END 2023-02-06 22:41 | disposition home or self-care (01) ==
LOC: ER 20:54
DX: R07.89 Other chest pain (principal)
CPT/HCPCS: 36415; 71045; 80048; 80076; 83735; 84443; 84484; 85025; 93005; 99285